=== PATIENT | female | born 1950 | race Caucasian/White ===

== ENCOUNTER 2019-03-06 09:05 | Outpatient (CLI) | payer MEDICARE, BC, SELFPAY ==
[2019-03-06 11:02] LABS: Abs Immature Grans 0.01 k/cumm (0.0-0.09); Absolute Basophil Count 0.03 k/cumm (0.0-0.2); Absolute Eosinophil Count 0.63 k/cumm (0.0-0.7); Absolute Lymphocyte Count 1.15 k/cumm (1.2-3.4); Absolute Monocyte Count 0.51 k/cumm (0.11-0.7); Absolute Neutrophil Count 4.26 k/cumm (1.2-6.7); Basophils % 0.5; Eosinophils % 9.6; HCT 29.4 % (36.0-46.0); HGB 8.3 g/dL (12.0-15.5); Immature Grans % 0.2; Lymphocytes % 17.5; Mean Corp. HGB Concentration 28.2 g/dL (32.0-36.0); Mean Corpuscular Hemoglobin 22.4 pg (27.0-33.0); Mean Corpuscular Volume 79.5 fL (80-95); Mean Platelet Volume 11.2 fL (8.0-11.0); Monocytes % 7.7; Neutrophils % 64.5; Platelet Count 372 x1000/uL (130-400); RBC Distribution Width 19.5 % (11.7-14.6); White Blood Cell Count 6.59 k/cumm (4.4-10.8)
[2019-03-06 11:20] LABS: Anisocytosis 2+; Diff Comment RBC Morph Reviewed; Hypochromasia 2+; Poikilocytes 2+; Polychromasia Present
[2019-03-06 12:24] LABS: Iron 110 ug/dL (50-175); Total Iron Binding Capacity 266 ug/dL (250-450); Transferrin Sat 41 % (15-50)
[2019-03-06 12:39] LABS: Ferritin 28 ng/mL (8-388); TSH (W/Ref FT4) 12.76 uIU/mL (0.358-3.74)
[2019-03-06 13:23] LABS: FREE T4 0.66 ng/dL (0.76-1.46)
== END 2019-03-06 09:25 ==
PROVIDERS: PCP Nurse Practitioner; Visit Provider Nurse Practitioner
DX: E03.9 Hypothyroidism, unspecified (principal); D64.9 Anemia, unspecified
CPT/HCPCS: 36415; 82728; 83540; 83550; 84439; 84443; 85025

== ENCOUNTER 2020-09-17 13:58 | Emergency (ER) | payer MEDICARE, BC, SELFPAY ==
--- NOTE | 2020-09-17 14:00 | RT.EKG_ITS ---
APPROVED REPORT Exam: Resting ECG Patient Location: E HR:75 bpm ECG Measurements Heart Rate 75 AXIS NH 164 P 55 QRSd 94 QRS -28 QT 408 T 44 QTc 456 Conclusion Sinus rhythm...normal P axis, V-rate 60- 99 Physician: Rate 75, sinus rhythm, no significant ST elevation or depression, no evidence of STEMI, no evidence of Brugada syndrome, epsilon wave, or delta wave
--- NOTE | 2020-09-17 14:00 | DI.CT_ITS ---
EXAM: CT BRAIN NECK CTA CLINICAL HISTORY: right neck mass, syncope COMPARISON: CT CHEST WITH CONTRAST from 12/28/2016 FINDINGS: CT angiography of the neck and chest was performed with intravenous infusion of 100 cc of Omnipaque 3 50. Images obtained through the upper lung vasquez show innumerable nodular radiodensities consistent with the patient's known metastatic papillary thyroid carcinoma. The number and size of nodules has increased since the prior CT scan of December 2016, largest nodule now measures about 2 cm in diamet er in the left upper lobe. There is mass of the right cervical region which measures up to 12 cm in diameter. This is probably contiguous with a right thyroid lobe mass. There are numerous lymph nodes throughout the cervical re gion which are enlarged consistent with widespread metastatic disease. Left supraclavicular lymph no sirena noted as well. The lymphadenopathy and the dominant right cervical mass have increased significa ntly in size when compared with prior examination of 2016, which was a chest CT demonstrating lower c ervical region only. No gross airway obstruction. The common, internal, and external carotid arteries are within normal l imits with no significant stenosis. The vertebral arteries are unremarkable in appearance bilaterall y. Aortic arch and visualized pulmonary arterial structures also appear intact. At the level of the cavernous sinus, there is a right-sided 14 x 11 x 12 millimeter in diameter aneur ysm which appears to arise from the internal carotid artery. No additional aneurysm in the region of the [id number]. The intracranial, vertebral and basilar arteries appear intact. The anterio r, middle, and posterior cerebral arteries appear intact bilaterally with no evidence of aneurysm, st enosis, or dissection. No gross enhancing intracranial lesion identified. The orbital and temporal bone structures appear i ntact. Paranasal sinuses and mastoid air cells are well aerated. No convincing bony erosive or destructive lesion seen. Question 2-3 millimeter foci of decreased bon e density noted in C2 and C3 vertebral bodies are nonspecific. IMPRESSION: 1. Patient has known metastatic papillary thyroid carcinoma and there is 12 cm right cervical mass se en laterally along with widespread bilateral cervical adenopathy and innumerable pulmonary metastases , all increased since prior examination of 2017. 2. 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 RADIATION DOSE DELIVERED: 1,066.57mGy.cm Total DLP
[2020-09-17 14:04] VITALS: BP 101/52; PULSE 84; RESP 23; TEMP 36.5; O2SAT 94
[2020-09-17 14:17] VITALS: RESP 13
[2020-09-17 14:38] LABS: Abs Immature Grans 0.04 10^3/uL (0.0-0.06); Absolute Basophil Count 0.03 10^3/uL (0.0-0.2); Absolute Eosinophil Count 0.58 10^3/uL (0.0-0.7); Absolute Lymphocyte Count 0.68 10^3/uL (1.2-3.4); Absolute Monocyte Count 0.53 10^3/uL (0.1-0.8); Absolute Neutrophil Count 7.54 10^3/uL (1.2-6.7); Basophils % 0.3; Eosinophils % 6.2; HCT 27.5 % (36.0-46.0); HGB 7.6 g/dL (11.2-15.7); Immature Grans % 0.4; Lymphocytes % 7.2; MCH 21.7 pg (27.0-33.0); MCHC 27.6 % (32.0-36.0); MCV 78.6 fL (80-95); MPV 10.7 fL (8.0-11.0); Monocytes % 5.6; Neutrophils % 80.3; Nucleated RBC 0 %; Platelet Count 350 10^3/uL (130-400); RDW 19.7 % (11.7-14.6); RDW-SD 53.2 fL
[2020-09-17 14:48] LABS: Anisocytosis 2+; Diff Comment RBC Morph Reviewed; Hypochromasia 3+; Microcytosis 2+; Polychromasia Present
[2020-09-17 14:49] LABS: Poikilocytes 2+
[2020-09-17 14:55] LABS: Troponin I < 0.05 ng/mL (<0.06)
[2020-09-17 15:01] LABS: ALT 11 U/L (14-59); AST 13 U/L (15-37); Albumin 2.6 g/dL (3.4-5.0); Alkaline Phosphatase 102 U/L (46-116); Anion Gap 10.9 mmol/L (3-11); BUN 20 mg/dL (7-18); Bilirubin, Total 0.3 mg/dL (0.2-1.0); CO2 24.1 mmol/L (21.0-32.0); CREATININE 0.88 mg/dL (0.55-1.02); Calcium 8.4 mg/dL (8.5-10.1); Chloride 107 mmol/L (98-107); Glucose 91 mg/dL (74-106); Potassium 3.9 mmol/L (3.5-5.1); Sodium 142 mmol/L (136-145); TSH (W/Ref FT4) 12.75 uIU/mL (0.36-3.74); Total Protein 6.2 g/dL (6.4-8.2)
--- NOTE | 2020-09-17 15:15 | ED.GENADUL_ITS ---
Discharge Plan Disposition Patient Disposition: HOME Condition: Serious Discharge Details Clinical Impression: Cancer of neck, Syncope, Aneurysm of carotid artery Primary Care Provider: Saige Musa ED Provider: Johny Montes Home Meds and New Rx's Prescriptions: Continued blue-green algae (Spirulina) 500 MG tablet 500 mg PO DAILY RF: 0 Echinacea and Goldenseal 1 EACH tablet 1 cap PO DAILY RF: 0 Thyroid Complex 2 cap PO DAILY RF: 0 ferrous sulfate 325 MG tablet 325 mg PO DAILY RF: 0 ascorbate calcium (vitamin C) 500 MG tablet 500 mg PO DAILY RF: 0 cholecalciferol (vitamin D3) 1,000 UNITS tablet 5 cap PO DAILY RF: 0 Discharge Instructions Instructions: Syncope (ED) Additional Instructions: As we discussed together right now you have some very concerning problems that require immediate management. The top 3 are your carotid artery aneurysm, your low blood levels, and the cancer from your neck that is spread to multiple other locations. As we discussed together it is your wish to go home rather than to stay or be transferred to [facility] at this time. I certainly respect that, and as we discussed together you are well aware of the risk of this. With that being said it is vitally important that you follow-up closely with your primary care doctor for immediate outpatient coordination of continued care of these 3 concerning etiologies. Please drink plenty of fluids, stay well-hydrated, avoid any vigorous activities that may increase your blood pressure. If you notice any worsening of your symptoms, or any new symptoms such as vomiting, diarrhea, fever, chills, shortness of breath, chest pain, numbness, weakness, or fainting , headache, neck pain, please return immediately to the emergency department for reevaluation. Please follow up with your primary care provider as soon as possible for reassessment and reevaluation. If at any point you would like to return to have us facilitate transfer to [facility] please return immediately and we will expedite this. As always, it was a pleasure participating in your medical care today. Referrals: Saige Musa [Primary Care Provider] - Medical Decision Making 70-year-old female with a past medical history of right-sided neck mass secondary to she describes as an enlarged lymph node, chronic iron d eficiency anemia for which she is being followed on an outpatient basis and has strong family history of, history of papillary carcinoma of the thyroid, previous episodes of syncope, presents today for syncope. Patient states that she was shopping at the grocery store standing in line for quite some time when she felt lightheaded, she tried to rest her head but unfortunately she passed out. Per bystanders she leaned forward on her cart, she did not strike her head or hurt any part of her body. She was unconscious for just a few seconds and came to. EMS arrived, vital demonstrated low blood pressure, she was given a 500 cc bolus of normal saline. Upon arrival to the ER her systolic had improved to 100. She feels much better at this time. She denies any pain in head, neck, chest, abdomen, or pelvis. She denies any new numbness, tingling, or weakness. No other complaints at this time. No other modifying factors. Patient states that of note she has been cutting down on her oral iron intake for the last week to week and a half but she plans to be going back to her normal level shortly. Physical exam demonstrates a notable grapefruit sized right neck mass, no stridor, no carotid bruit. Normal neurologic exam. No signs of significant trauma. Patient states that the symptoms were notably common for her, that she often faints when she has to stand up for extended periods of time. Suspect that there is symptoms are likely vasovagal in nature, she was given a 500 cc bolus by EMS. However with her large neck mass I am concerned that this may be impacting the carotid. We will get a CT scan to look for further evidence of invagination into the vasculature, we will rehydrate, will evaluate for acute cardiac abnormality otherwise, monitor closely and reassess. 5:17 PM Laboratory work-up and imaging has returned, multiple concerning abnormalities. Hemoglobin is 7.6 which is slightly lower than normal, no elevated white count, electrolytes normal, renal function stable. Troponin normal, proBNP normal suggestive of no fluid overload. Or cardiac strain. TSH is notably high at 12.75 which does not seem to be new. Free T4 is 0.7. Patient's blood pressure remained stable here, no hypertension or hypotension. Heart rate stable. Repeat neurologic exam continues to be normal. CT scan has returned and shows multiple concerning abnormalities. The large mass is certainly persistent on her neck, however previous CT scan in 2017 demonstrated a few lesions in the neck and apex of the lung, however this is notably increased over the past 3 years to include multiple more lesions and enhancement of size as well. In addition to that there is evidence of a right 14 x 11 x 12 mm aneurysm coming from the internal carotid artery. I did personally show the patient is images, and made it very clear that this is clear evidence of metastatic disease. The patient seemed to have a very unclear understanding of what this was from when it was previously described to her. She states that she has not been able to follow-up with a primary care provider recently. Additionally I described the concern of the carotid artery aneurysm, and the potential for rupture. We went over in depth the pathophysiology of this. I did discuss with the patient admission/observation to the hospital and/or transferred to [facility] for further management of this, and at this time through notable discussion, with a very clear discussion on the benefit of admission and the risks associated with discharge including the potential worst case scenario of or lifelong dis ability the patient has refused admission and would like to go home. Patient is of a appropriate age to make decisions. The patient is of sound mind, appears clinically sober, and has capacity to make decisions by my clinical exam. Additionally I offered to contact [facility] and begin the process of specialist discussion, however the patient would like to hold off on this and would like to have her care managed entirely through her primary care provider Saige Musa. The patient made it clear that she did not want to be pressured by the specialist at this time and would like to work through her primary care provider about this. Additionally I offered to contact the patient's family members to discuss this with them, and the patient requested that I hold off and allow her to discuss this with them first. The patient has made it very clear that she would like to go home at this time. She feels well, repeat orthostatic vital signs demonstrate no signs of hypotension. With no signs of hypertension I do not see indication for new blood pressure medications at this time. Respecting the patient's multiple requests for management on an outpatient basis she will be discharged home. I made it unequivocally clear that she can return at any time to have this transition to [facility] expedited. Additionally I spent a long time discussing risk going home, as well as symptoms that would be of concern for which she should immediately return for reassessment. We will place a referral with our telehealth case manager to have the patient followed up very closely with Dr. Musa. I have extensively reviewed the treatment plan and discharge instructions with the patient. I have addressed all patient concerns at this time. The patient was made aware of what symptoms to monitor for that would warrant a return to the emergency department. Discussed the plan with the patient, they demonstrate verbal understanding and agreement with our assessment and plan at this time. EKG 14: 10 Rate 75, sinus rhythm, no significant ST elevation or depression, no evidence of STEMI, no evidence of Brugada syndrome, epsilon wave, or delta wave. CT angiography of the neck and chest was performed with intravenous infusion of 100 cc of Omnipaque 350. Images obtained through the upper lung vasquez show innumerable nodular radiodensities consistent with the patient's known metastatic papillary thyroid carcinoma. The number and size of nodules has increased since the prior CT scan of December 2016, largest nodule now measures about 2 cm in diameter in the left upper lobe. There is mass of the right cervical region which measures up to 12 cm in diameter. This is probably contiguous with a right thyroid lobe mass. There are numerous lymph nodes throughout the cervical region which are enlarged consistent with widespread metastatic disease. Left supraclavicular lymph nodes noted as well. The lymphadenopathy and the dominant right cervical mass have increased significantly in size when compared with prior examination of 2016, which was a chest CT demonstrating lower cervical region only. No gross airway obstruction. The common, internal, and external carotid arteries are within normal limits with no significant stenosis. The vertebral arteries are unremarkable in appearance bilaterally. Aortic arch and visualized pulmonary arterial structures also appear intact. At the level of the cavernous sinus, there is a right-sided 14 x 11 x 12 millimeter in diameter aneurysm which appears to arise from the internal carotid artery. No additional aneurysm in the region of the [id number]. The the intracranial vertebral and No gross enhancing intracranial lesion identified. The orbital and temporal bone structures appear intact. Paranasal sinuses and mastoid air cells are well aerated. No convincing bony erosive or destructive lesion seen. Question 2-3 millimeter foci of decreased bone density noted in C2 and C3 vertebral bodies are nonspecific HPI General Date/Time Provider Initiated Documentation: 09/17/20 14:13 . HPI Narrative: 70-year-old female with a past medical history of right-sided neck mass secondary to she describes as an enlarged lymph node, chronic iron deficiency anemia for which she is being followed on an outpatient basis and has strong family history of, history of papillary carcinoma of the thyroid, previous episodes of syncope, presents today for syncope. Patient states that she was shopping at the grocery store standing in line for quite some time when she felt lightheaded, she tried to rest her head but unfortunately she passed out. Per bystanders she leaned forward on her cart, she did not strike her head or hurt any part of her body. She was unconscious for just a few seconds and came to. EMS arrived, vital demonstrated low blood pressure, she was given a 500 cc bolus of normal saline. Upon arrival to the ER her systolic had improved to 100. She feels much better at this time. She denies any pain in head, neck, chest, abdomen, or pelvis. She denies any new numbness, tingling, or weakness. No other complaints at this time. No other modifying factors. Patient states that of note she has been cutting down on her oral iron intake for the last week to week and a half but she plans to be going back to her normal level shortly. Related Data Home Medications Medication Instructions Recorded Confirmed Echinacea and Goldenseal 1 cap PO DAILY 08/29/15 09/17/20 blue-green algae (Spirulina) 500 mg PO DAILY 08/29/15 09/17/20 Thyroid Complex 2 cap PO DAILY 12/24/17 09/17/20 ascorbate calcium (vitamin C) 500 mg PO DAILY 12/24/17 09/17/20 cholecalciferol (vitamin D3) 5 cap PO DAILY 12/24/17 09/17/20 ferrous sulfate 325 mg PO DAILY 12/24/17 09/17/20 Allergies Allergy/AdvReac Type Severity Reaction Status Date / Time Penicillins Allergy Severe Anaphylaxsi Unverified 09/17/20 14:09 s epinephrine Allergy Intermediate faintness Unverified 09/17/20 14:09 and sweating General Stated Complaint: Dizzy/Sync KAELA: 2 Review of Systems All systems reviewed & are unremarkable except as noted in HPI and below PFSH Medical History Anemia Blood in stool Choroidal nevus, 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 3.ENT: Atraumatic external nose and ears. Moist MM. Neck: Symmetric, trachea midline, No thyromegaly. Patient has a notable chronic right sided neck mass size of a grapefruit. No stridor. Carotid pulse is palpable. There is no evidence of raccoon eyes, castro sign, CSF rhinorrhea, mastoid tenderness, cranial crepitus, hemotympanum, exophthalmos, or hyphema. Patient demonstrates intact dentition with no signs of tooth avulsion or fracture, no signs of jaw deformity, no evidence of a LeFort's fracture, with an intact palate, nose and orbital region. There is no evidence of a nasal septal hematoma. No proptosis. Jaw closes symmetrically. Airway is clear. 4.CVS: +S1/S2, No murmurs or gallops. Peripheral pulses 2+ and equal in all e xtremities. Brisk capillary refill in all extremities. 5.RESP: Unlabored respiratory effort. Clear to auscultation bilaterally. No wheezes rales or rhonchi 6.GI: Soft, Nontender/Nondistended, No hepatosplenomegaly. No guarding or rebound. 7.MSK: Normocephalic/Atraumatic, Extremities w/o deformity or ttp No cyanosis or clubbing, Normal movement of all extremities 8.Skin: Warm, Dry. No rashes or lesions. 9.Neuro: industrial electrician II-XII grossly intact. Sensation grossly intact, no focal neurologic deficits. All 6 cardinal planes of vision are fully intact. No evidence of rotatory or vertical nystagmus. The patient demonstrated a normal [id number], good dexterity. There was no evidence of dysdiadochokinesia. Patient was able to ambulate without difficulty. There was no wide-based gait. Romberg testing was normal. [id number]-[id number] testing was normal. Sensation was intact bilaterally as well as muscle strength bilaterally for all extremities. Patient was able to verbalize butter cup with no slurring, or miss pronunciation. 10.Psych: (AAO) x3. Appropriate mood and affect Course Vital Signs Vital signs: Vital Signs Temperature 36.5 C 09/17/20 14:04 Pulse 84 09/17/20 14:04 Respiratory Rate 23 09/17/20 14:04 Blood Pressure 101/52 L 09/17/20 14:04 Pulse Oximetry 94 09/17/20 14:04 Temperature 36.5 C 09/17/20 14:04 Temperature Source Skin 09/17/20 14:04 Pulse 84 09/17/20 14:04 Respiratory Rate 13 09/17/20 14:17 Respiratory Effort Non-Labored 09/17/20 14:17 Respiratory Depth Normal 09/17/20 14:17 Respiratory Pattern Normal 09/17/20 14:17 Blood Pressure 101/52 L 09/17/20 14:04 Blood Pressure Position Supine 09/17/20 14:04 Pulse Oximetry 94 09/17/20 14:04 Oxygen Delivery Method Room Air 09/17/20 14:04 Oxygen Flow Rate 0 09/17/20 14:04 Pain Level 0 09/17/20 14:04 Lab/Test Results Lab/Test Results: Laboratory Tests Range/Units 09/17/20 09/17/20 09/17/20 14:30 14:30 14:30 WBC (4.4-10.8) 10^3/uL 9.40 RBC (3.93-5.22) 10^6/uL 3.50 L Hgb (11.2-15.7) g/dL 7.6 L Hct (36.0-46.0) % 27.5 L MCV (80-95) fL 78.6 L MCH (27.0-33.0) pg 21.7 L MCHC (32.0-36.0) % 27.6 L RDW (11.7-14.6) % 19.7 H Plt Count (130-400) 10^3/uL 350 MPV (8.0-11.0) fL 10.7 Immature Gran % 0.4 Neutrophils % 80.3 Lymphocytes % 7.2 Monocytes % 5.6 Eosinophils % 6.2 Basophils % 0.3 Nucleated RBC % % 0 Absolute Neutrophils (1.2-6.7) 10^3/uL 7.54 H Absolute Lymphocytes (1.2-3.4) 10^3/uL 0.68 L Absolute Monocytes (0.1-0.8) 10^3/uL 0.53 Absolute Eosinophils (0.0-0.7) 10^3/uL 0.58 Absolute Basophils (0.0-0.2) 10^3/uL 0.03 RBC Morphology See below Polychromasia Present Hypochromasia 3+ Poikilocytosis 2+ Anisocytosis 2+ Microcytosis 2+ Sodium (136-145) mmol/L 142 Potassium (3.5-5.1) mmol/L 3.9 Chloride (98-107) mmol/L 107 Carbon Dioxide (21.0-32.0) mmol/L 24.1 Anion Gap (3-11) mmol/L 10.9 BUN (7-18) mg/dL 20 H Creatinine (0.55-1.02) mg/dL 0.88 Estimated GFR/1.73 m2 (mL/min/1.73m2) >= 60.00 Glucose (74-106) mg/dL 91 Calcium (8.5-10.1) mg/dL 8.4 L Total Bilirubin (0.2-1.0) mg/dL 0.3 AST (15-37) U/L 13 L ALT (14-59) U/L 11 L Alkaline Phosphatase (46-116) U/L 102 Troponin I (<0.06) ng/mL < 0.05 Total Protein (6.4-8.2) g/dL 6.2 L Albumin (3.4-5.0) g/dL 2.6 L TSH (0.36-3.74) uIU/mL 12.75 H
[2020-09-17 15:21] LABS: NT-proBNP 118 pg/mL (<300)
[2020-09-17] MEDS: Normal Saline Flush 10 ML SYR IVP (15:59)
[2020-09-17] MEDS: Omnipaque 350 MG/ML 100 ML BTL IJ (16:00)
[2020-09-17] MEDS: Normal Saline - Diluent 50 ML VIAL IV (16:00)
[2020-09-17 16:04] VITALS: BP 107/62; BP 108/60; BP 110/65; PULSE 85; PULSE 87; PULSE 91
[2020-09-17 17:03] VITALS: BP 111/60; PULSE 94; RESP 16; O2SAT 95
--- NOTE | 2020-09-17 17:06 | NUR.NOTE ---
Nursing Note: Referral faxed to PCP for follow up. Referral given to Care Management to follow up with patient to be sure she got appt and immediate follow up, Dana Ziegler
--- NOTE | 2020-09-20 09:16 | CMPROGNOTE_ITS ---
- If Service Date Differs Date of service: 09/20/20 Time of Service: 09:16 Care Management Progress Note At the request of Dr. Jyoti CM confirms Beba was seen by her PCP, Saige Musa np, on Saturday, September 19, 2020. KATH also left a message at Beba's home number ([phone]) offering assistance with scheduling appointment at [facility]. Will await a return phone call from Beba.
== END 2020-09-17 17:21 | disposition home or self-care (01) ==
PROVIDERS: Emergency Provider Student in an Organized Health Care Education/Training Program; PCP Nurse Practitioner
DX: I67.1 Cerebral aneurysm, nonruptured (principal); C76.0 Malignant neoplasm of head, face and neck; R55 Syncope and collapse; D50.9 Iron deficiency anemia, unspecified; C73 Malignant neoplasm of thyroid gland
CPT/HCPCS: 36415; 70496; 70498; 80053; 93005; 99285; 83880; 84439; 84443; 84484; 85025; 93010; J3490

== ENCOUNTER 2020-09-19 17:02 | Outpatient (REF) | payer MEDICARE, BC, SELFPAY ==
[2020-09-19 20:37] LABS: TSH (W/Ref FT4) 5.54 uIU/mL (0.36-3.74)
[2020-09-19 20:58] LABS: FREE T4 0.74 ng/dL (0.76-1.46)
[2020-09-20 10:45] LABS: Iron 11 ug/dL (50-170); Total Iron Binding Capacity 286 ug/dL (250-450); Transferrin Sat 4 % (15-50)
== END 2020-09-19 17:22 ==
LOC: NCHCN 17:02
PROVIDERS: PCP Nurse Practitioner; Visit Provider Nurse Practitioner
DX: E03.9 Hypothyroidism, unspecified (principal); D50.9 Iron deficiency anemia, unspecified
CPT/HCPCS: 83540; 83550; 84439; 84443

== ENCOUNTER 2021-04-07 01:57 | Outpatient (CLI) | payer MEDICARE, BC, SELFPAY ==
[2021-04-07 11:01] LABS: Iron 49 ug/dL (50-170)
[2021-04-07 11:11] LABS: TSH (W/Ref FT4) 9.45 uIU/mL (0.36-3.74)
[2021-04-07 11:28] LABS: FREE T4 0.71 ng/dL (0.76-1.46)
[2021-04-10 11:04] LABS: Misc Referral (MAYO) See Comments
== END 2021-04-07 01:58 | disposition home or self-care (01) ==
LOC: LBO 01:57
PROVIDERS: PCP Nurse Practitioner; Visit Provider Nurse Practitioner
DX: E03.9 Hypothyroidism, unspecified (principal); D50.9 Iron deficiency anemia, unspecified; R53.83 Other fatigue; R53.81 Other malaise; R51.9 Headache, unspecified
CPT/HCPCS: 36415; 86769; 83540; 84439; 84443

== ENCOUNTER 2022-03-11 10:41 | Emergency (ER) | payer MEDICARE, BC, SELFPAY ==
[2022-03-11] VITALS (57 sets, daily range): BP systolic 83–112; BP diastolic 44–71; PULSE 96–109; RESP 12–43; TEMP 36.3–37.4; O2SAT 88–100
--- NOTE | 2022-03-11 10:15 | RT.EKG_ITS ---
APPROVED REPORT Exam: Resting ECG Reason for Exam: hypoxia Patient Location: E HR:103 bpm ECG Measurements Heart Rate 103 AXIS SC 163 P 67 QRSd 90 QRS -33 QT 364 T [id number] QTc 478 Conclusion Sinus tachycardia...rate> 99 Left axis deviation...QRS axis (-30,-90) Nonspecific T abnrm, anterolateral leads...T <-0.10mV, I aVL V2-V6. Sinus. No STEMI.
--- NOTE | 2022-03-11 10:42 | W.ED.GENAD ---
Discharge Plan Disposition Patient Disposition: [facility] Condition: Serious Discharge Details Clinical Impression: Acute on chronic anemia, Pulmonary emboli, Metastasis from thyroid cancer, Pulmonary metastases Primary Care Provider: Saige Musa ED Provider: Landy Vicente Home Meds and New Rx's Prescriptions: No Action blue-green algae (Spirulina) 500 MG tablet 500 mg PO DAILY 0RF Echinacea and Goldenseal 1 EACH tablet 1 cap PO DAILY 0RF Thyroid Complex 2 cap PO DAILY 0RF ferrous sulfate 325 MG tablet 325 mg PO DAILY 0RF ascorbate calcium (vitamin C) 500 MG tablet 500 mg PO DAILY 0RF cholecalciferol (vitamin D3) 1,000 UNITS tablet 5 cap PO DAILY 0RF Discharge Data Discharge Date/Time-TO BE ENTERED AT DEPARTURE: 03/11/22 16:08 Medical Decision Making 1045 -- 71-year-old female with a history of metastatic papillary thyroid carcinoma and iron deficiency anemia who presents for dyspnea on exertion, generalized weakness and inability to get out of bed for the last week. Also reported that her neck mass has been oozing this morning. EMS reported oxygen saturation was 88% on room air and increased to 95% on 2 L. She was hypotensive at 96/55. Blood pressure 90/54, heart rate 104, oxygen saturation 88% on 2 L on arrival, increased to 4 L nasal cannula. Patient is cachectic, pale and ill-appearing. She is pale with a significantly large neck mass which is draining brown liquid on the distal aspect near her chest. She has 2+ pitting pedal edema. Suspect anemia. Consider PE. Will place an IV, screening labs, CT neck and chest with IV contrast to rule out abscess, PE, worsening mass or tumor burden. Labs and imaging reviewed. White blood cell count 14. Hemoglobin 3.4. Platelets 364. Lactate 1.7. Troponin negative. Urinalysis notes UTI. Fluvid negative. CT neck/chest notes: IMPRESSION: Interval increase in innumerable pulmonary metastases since CT of 2017. Acute pulmonary embolic disease, low to moderate clot burden, no evidence of right heart strain. No gross interval change in appearance of large right cervical mass and cervical adenopathy from 2019, the patient reportedly has a history of metastatic papillary thyroid carcinoma. 1330 -- Results discussed with patient. She would like to pursue any possible options. As she has anemia, cannot give anticoagulation for her PEs and will likely need IVC filter. Discussed with hospitalist who agrees with plan for transfer as patient would like to pursue treatment. Patient would not like to pursue comfort measures at this time. She states she was offered to have surgical removal of her thyroid cancer in the past but declined due to potential loss of her voice. 1440 -- Case discussed with [facility] center and patient accepted for transfer. Accepting physician critical care Dr. Langley. Medical Records Medical records reviewed: Yes I reviewed the patient's medical records. Imaging Data Radiologic Study: Radiologist's impression: CT CHEST PE CTA CLINICAL HISTORY:? sob, hypoxia, r/o PE TECHNIQUE:? COMPARISON:? CT CHEST WITH CONTRAST from 12/28/[address] BRAIN ? NECK CTA from 09/17/[address] NECK W from 03/11/2022 FINDINGS: CT examination of the chest was performed utilizing pulmonary angiogram protocol with intravenous infusion 100 cc of Omnipaque 350.? CT of the cervical region was performed following the CT a of the chest. The patient has known metastatic papillary thyroid carcinoma, comparison with prior chest CT of December 2016 again shows innumerable pulmonary metastatic lesions, most of which have increased in size in comparison with the prior examination, there are innumerable lesions present in both lungs.? There is predominant atelectasis at the lung bases which is new since the prior examination.? There are enlarged hilar lymph nodes which are new from the prior examination.? Central mediastinum is difficult to evaluate but there is probable mild central mediastinal adenopathy. There are multiple pulmonary emboli, emboli are present in all pulmonary lobes in segmental and subsegmental vessels.? No central large embolus identified.? No evidence of right heart strain.? No thoracic aortic aneurysm or dissection. A previously described large right cervical mass seen on prior CT of September 2020 is again noted and is roughly similar in size and shape to the prior examination.? The mass is predominantly cystic with multiple solid components.? No gross new cervical mass seen.? Mildly enlarged bilateral cervical nodes are again identified.? Tracheolaryngeal structures appear intact.? Visualized portions of the brain are grossly unremarkable.? Note is again made of apparent cavernous sinus ICA aneurysms, grossly unchanged from prior examination. No orbital abnormality seen. Images obtained through the upper abdomen show previously described bilateral renal cysts.? Hepatic parenchyma grossly unremarkable.? Early arterial phase splenic imaging grossly unremarkable although low-attenuation rounded lesion may be present in the spleen laterally, correlation with upper abdominal MRI may be considered if clinically indicated. IMPRESSION: Interval increase in innumerable pulmonary metastases since CT of 2017. Acute pulmonary embolic disease, low to moderate clot burden, no evidence of right heart strain. No gross interval change in appearance of large right cervical mass and cervical adenopathy from 2019, the patient reportedly has a history of metastatic papillary thyroid carcinoma. Lab Data Lab results reviewed: Yes I reviewed the patient's lab results. Labs: 03/11/22 11:36 Urine - Reflex from Ua Urine Culture - Pending Laboratory Tests Range/Units 03/11/22 03/11/22 03/11/22 10:50 10:50 10:50 WBC (4.4-10.8) 10^3/uL 14.36 H RBC (3.93-5.22) 10^6/uL 2.13 L Hgb (11.2-15.7) g/dL 3.4 L* Hct (36.0-46.0) % 13.3 L* MCV (80-95) fL 62 L MCH (27.0-33.0) pg 16.0 L MCHC (32.0-36.0) % 25.6 L RDW (11.7-14.6) % 22.4 H Plt Count (130-400) 10^3/uL 364 MPV (8.0-11.0) fL 10.1 Immature Gran % 0.3 Neutrophils % 90.7 Lymphocytes % 3.2 Monocytes % 5.4 Eosinophils % 0.3 Basophils % 0.1 Nucleated RBC % (0.0-0.3) % 0.0 Absolute Neutrophils (1.2-6.7) 10^3/uL 13.02 H Absolute Lymphocytes (1.2-3.4) 10^3/uL 0.46 L Absolute Monocytes (0.1-0.8) 10^3/uL 0.78 Absolute Eosinophils (0.0-0.7) 10^3/uL 0.04 Absolute Basophils (0.0-0.2) 10^3/uL 0.01 RBC Morphology See Below Hypochromasia 3+ Anisocytosis 2+ Microcytosis 2+ VBG Lactate (0.6-1.4) mmol/L 1.7 H Sodium (136-145) mmol/L 139 Potassium (3.5-5.1) mmol/L 3.9 Chloride (98-107) mmol/L 106 Carbon Dioxide (21.0-32.0) mmol/L 26.7 Anion Gap (3-11) mmol/L 6.3 BUN (7-18) mg/dL 26 H Creatinine (0.55-1.02) mg/dL 0.7 Estimated GFR/1.73 m2 (mL/min/1.73m2) >= 60.00 Glucose (74-106) mg/dL 96 Calcium (8.5-10.1) mg/dL 7.9 L Magnesium (1.8-2.4) mg/dL 2.1 Total Bilirubin (0.2-1.0) mg/dL 0.2 AST (15-37) U/L 8 L ALT (14-59) U/L 7 L Alkaline Phosphatase (46-116) U/L 113 Troponin I (<or=60) ng/L < 50 Total Protein (6.4-8.2) g/dL 5.1 L Albumin (3.4-5.0) g/dL 1.2 L Urine Color (Yellow) Urine Clarity (Clear) Urine pH (5-8) Ur Specific Twilight (1.005-1.025) Urine Protein (Negative) mg/dL Urine Ketones (Negative) mg/dL Urine Blood (Negative) Urine Nitrite (Negative) Urine Bilirubin (Negative) Urine Urobilinogen (Up TO 0.2) EU/dL Ur Leukocyte Esterase (Negative) Urine RBC (0-2) HPF Urine WBC (0-5) HPF Ur Epithelial Cells (Negative) HPF Urine Crystals (Negative) HPF Urine Bacteria (Negative) HPF Urine Casts (Negative) LPF Urine Mucus (Negative) Ur Culture Indicated? Urine Glucose (Negative) mg/dL COVID-19 Source SARS-CoV-2 (PCR) (Negative) Influenza Type A (PCR) (Negative) Influenza Type B (PCR) (Negative) RSV (PCR) (Negative) Patient ABO/Rh Antibody Screen Crossmatch Range/Units 03/11/22 03/11/22 03/11/22 10:50 11:16 11:36 WBC (4.4-10.8) 10^3/uL RBC (3.93-5.22) 10^6/uL Hgb (11.2-15.7) g/dL Hct (36.0-46.0) % MCV (80-95) fL MCH (27.0-33.0) pg MCHC (32.0-36.0) % RDW (11.7-14.6) % Plt Count (130-400) 10^3/uL MPV (8.0-11.0) fL Immature Gran % Neutrophils % Lymphocytes % Monocytes % Eosinophils % Basophils % Nucleated RBC % (0.0-0.3) % Absolute Neutrophils (1.2-6.7) 10^3/uL Absolute Lymphocytes (1.2-3.4) 10^3/uL Absolute Monocytes (0.1-0.8) 10^3/uL Absolute Eosinophils (0.0-0.7) 10^3/uL Absolute Basophils (0.0-0.2) 10^3/uL RBC Morphology Hypochromasia Anisocytosis Microcytosis VBG Lactate (0.6-1.4) mmol/L Sodium (136-145) mmol/L Potassium (3.5-5.1) mmol/L Chloride (98-107) mmol/L Carbon Dioxide (21.0-32.0) mmol/L Anion Gap (3-11) mmol/L BUN (7-18) mg/dL Creatinine (0.55-1.02) mg/dL Estimated GFR/1.73 m2 (mL/min/1.73m2) Glucose (74-106) mg/dL Calcium (8.5-10.1) mg/dL Magnesium (1.8-2.4) mg/dL Total Bilirubin (0.2-1.0) mg/dL AST (15-37) U/L ALT (14-59) U/L Alkaline Phosphatase (46-116) U/L Troponin I (<or=60) ng/L Total Protein (6.4-8.2) g/dL Albumin (3.4-5.0) g/dL Urine Color (Yellow) Yellow Urine Clarity (Clear) Sl Cloudy Urine pH (5-8) 6.0 Ur Specific Twilight (1.005-1.025) 1.015 Urine Protein (Negative) mg/dL 30 H Urine Ketones (Negative) mg/dL Negative Urine Blood (Negative) Trace-intact H Urine Nitrite (Negative) Positive H Urine Bilirubin (Negative) Negative Urine Urobilinogen (Up TO 0.2) EU/dL 0.2 Ur Leukocyte Esterase (Negative) Moderate H Urine RBC (0-2) HPF 0-2 Urine WBC (0-5) HPF 20-50 H Ur Epithelial Cells (Negative) HPF Few Urine Crystals (Negative) HPF Negative Urine Bacteria (Negative) HPF Moderate Urine Casts (Negative) LPF 0-2 Hyaline Urine Mucus (Negative) Negative Ur Culture Indicated? Yes Urine Glucose (Negative) mg/dL Negative COVID-19 Source Not Applicable SARS-CoV-2 (PCR) (Negative) Negative Influenza Type A (PCR) (Negative) Negative Influenza Type B (PCR) (Negative) Negative RSV (PCR) (Negative) Negative Patient ABO/Rh A Positive Antibody Screen NEGATIVE Crossmatch See Detail ECG Data Attestation: I personally reviewed and interpreted this ECG (s) as follows: Interpretation: Rate of 103, sinus, no stemi. HPI General Mode of arrival: ambulatory. Date/Time Provider Initiated Documentation: 03/11/22 10:51. Limitations to Documentation: no limitations. Information obtained by: patient. HPI Narrative: Pt is a 71yo F w/ a history of metastatic papillary thyroid carcinoma and iron deficiency anemia who presents with dyspnea on exertion, generalized weakness and inability to get out of bed for the last week. She also admits to swelling in her feet over the past 4 days. EMS states they were called to the scene after a neighbor checked on patient today and she was noted noted to have bruising from her goiter and her neck. Patient states she was unaware of this until a neighbor noticed it today. Patient states she gets Meals on Wheels but is able to feed herself. She states she has not been able to get out of bed for the last week. She has not taken any of her supplemental medications in the last 2 weeks. She states she is not on any prescription medication. She states she becomes significantly short of breath and weak with any exertion. She denies any known fever, abdominal pain, vomiting or diarrhea. She states she last ate this morning. She states she had a normal bowel movement without known rectal bleeding this morning. She states she thinks she lost approximately 60 pounds in the last year. Related Data Home Medications Medication Instructions Recorded Confirmed Echinacea purpurea extract 75 1 cap PO DAILY 08/29/15 03/11/22 mg-goldenseal extract 100 mg tablet (Echinacea and Goldenseal) blue-green algae (Spirulina) 500 500 mg PO DAILY 08/29/15 03/11/22 mg tablet Thyroid Complex 2 cap PO DAILY 12/24/17 03/11/22 ascorbate calcium (vitamin C) 500 500 mg PO DAILY 12/24/17 03/11/22 mg tablet cholecalciferol (vitamin D3) 25 5 cap PO DAILY 12/24/17 03/11/22 mcg (1,000 unit) tablet ferrous sulfate 325 mg (65 mg 325 mg PO DAILY 12/24/17 03/11/22 iron) tablet Allergies Allergy/AdvReac Type Severity Reaction Status Date / Time Penicillins Allergy Severe Anaphylaxsi Unverified 03/11/22 12:03 s epinephrine Allergy Intermediate faintness Unverified 03/11/22 12:03 and sweating General Stated Complaint: GenMedical KAELA: 2 Review of Systems All systems reviewed & are unremarkable except as noted in HPI and below Constitutional Constitutional: Denies chills, Denies excessive sweating, Denies fatigue, Denies fever(s), Reports weakness and Reports weight loss Eyes Eyes: Reports system reviewed and no additional complaints, except as documented and Denies blurry vision ENT Ears, Nose, Mouth, and Throat: Denies vertigo, Denies dizziness, Denies otalgia, Denies nasal congestion, Denies sore throat and Denies throat swelling Cardiovascular Cardiovascular: Denies chest pain, Denies syncope, Denies rapid heart rate, Reports leg edema, Denies dyspnea and Reports dyspnea on exertion Respiratory Respiratory: Denies chest congestion, Denies cough, Denies pain on inspiration, Denies dyspnea and Reports dyspnea on exertion Gastrointestinal Gastrointestinal: Denies abdominal pain, Denies diarrhea and Denies vomiting Genitourinary Genitourinary: Denies hematuria, Denies dysuria and Denies flank pain Musculoskeletal Musculoskeletal: Denies back pain and Denies joint swelling Integumentary/Breasts Skin/Breast: Denies lesions and Denies rash Neurologic Neurologic: Denies behavioral changes, Denies confusion, Denies vertigo, Denies dizziness, Denies syncope, Denies localized weakness and Reports weakness Psychiatric Psychiatric: Denies behavioral changes, Denies confusion and Denies depression Endocrine Endocrine: Denies excessive sweating and Denies fatigue Hematologic/Lymphatic Hematologic/Lymphatic: Denies easy bruising and Denies lymphadenopathy Allergic/Immunologic Allergic/Immunologic: Denies throat swelling PFSH All Active Problems (Updated 03/11/22 @ 14:49 by Landy Vicente DO) Strep pharyngitis (Acute) Acute on chronic anemia (Acute) Pulmonary emboli (Chronic) Metastasis from thyroid cancer (Acute) Pulmonary metastases (Acute) Medical History Anemia Blood in stool Choroidal nevus, 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, right Hx of syncope Hyperlipidemia Osteopenia Palpitations Papillary carcinoma of thyroid Surgical History FNA thyroid ORIF elbow uterine fibroid excision Family History Other Diabetes Heart disease Malaria Social History Smoking/Tobacco Use Status: Never Smoking risk assessment performed?: Yes Alcohol Intake: never Drug use: Never Substance use type: does not use Do you feel safe at home: Yes Do you feel safe in your relationship?: Yes Exam Const General: ill appearing acutely and chronically Nutritional Appearance: cachectic Orientation: alert, awake and oriented x3 HENMT Head: normal to inspection Ears: hearing grossly normal bilaterally, external ears normal and TM's normal bilaterally General nose exam: external nose normal Face and sinus: normal facial exam Mouth: oral mucosae normal Teeth and gingiva: dentition normal Throat: posterior oropharynx normal Eyes General: appearance normal, both eyes and all related structures Eyelids: eyelids normal Pupils: PERRL EOM: EOM intact bilaterally Neck Neck images: 1. Large goiter noted to right side of neck. 2. There are 3 soft boggy circular opening within the right lateral aspect of the distal goiter which are draining brownish material. There is no surrounding erythema. Chest Chest: normal inspection of the chest Resp Effort & Inspection: normal respiratory effort and able to speak in complete sentences Auscultation: clear to auscultation bilaterally Cardio Rate: regular rate Rhythm: regular rhythm GI Inspection: normal to inspection Palpation: soft, not firm, no guarding, no hepatosplenomegaly, no masses and nontender Auscultation: hypoactive bowel sounds Rectal Exam - female: heme positive stool (brown stool) Rectal exam heme positive - female: trace Back/Spine/Pelvis Back: no CVA tenderness Skin General skin exam: no rashes or lesions noted and pallor Neuro General: patient alert and patient awake Cognition: normal cognition Speech: speech normal Gait: normal gait Motor: muscle tone normal throughout Sensory Exam: no sensory deficits noted Extrem Other: 2+ pitting bilateral pedal edema. Psych Appearance: grossly normal Mental Status: mental status grossly normal Speech and Movement: speech and movement normal Affect: normal affect Thought Process: normal
[2022-03-11 11:01] LABS: Lactate 1.7 mmol/L (0.6-1.4)
[2022-03-11 11:19] LABS: Abs Immature Grans 0.05 10^3/uL (0.0-0.06); Absolute Basophil Count 0.01 10^3/uL (0.0-0.2); Absolute Eosinophil Count 0.04 10^3/uL (0.0-0.7); Absolute Lymphocyte Count 0.46 10^3/uL (1.2-3.4); Absolute Monocyte Count 0.78 10^3/uL (0.1-0.8); Absolute Neutrophil Count 13.02 10^3/uL (1.2-6.7); Basophils % 0.1; Eosinophils % 0.3; Immature Grans % 0.3; Lymphocytes % 3.2; MCHC 25.6 % (32.0-36.0); MCV 62 fL (80-95); MPV 10.1 fL (8.0-11.0); Monocytes % 5.4; Neutrophils % 90.7; Platelet Count 364 10^3/uL (130-400); RBC 2.13 10^6/uL (3.93-5.22); RDW 22.4 % (11.7-14.6); WBC 14.36 10^3/uL (4.4-10.8)
[2022-03-11 11:20] LABS: HCT 13.3 % (36.0-46.0); HGB 3.4 g/dL (11.2-15.7)
[2022-03-11 11:25] LABS: Anisocytosis 2+; Diff Comment RBC Morph Reviewed; Hypochromasia 3+; Microcytosis 2+
--- NOTE | 2022-03-11 11:25 | DI.CT_ITS ---
Exam(s) CT NECK W CT CHEST PE CTA EXAM: CT CHEST PE CTA CLINICAL HISTORY: sob, hypoxia, r/o PE TECHNIQUE: COMPARISON: CT CHEST WITH CONTRAST from 12/28/[address] BRAIN NECK CTA from 09/17/[address] NECK W from 03/11/2022 FINDINGS: CT examination of the chest was performed utilizing pulmonary angiogram protocol with intravenous inf usion [address] of the cervical region was performed following the CT a of the [facility]. The patient has known metastatic papillary thyroid carcinoma, comparison with prior chest CT of 2016 again shows innumerable pulmonary metastatic lesions, most of which have increased in size i n comparison with the prior examination, there are innumerable lesions present in both lungs. There is predominant atelectasis at the lung bases which is new since the prior examination. There are enl arged hilar lymph nodes which are new from the prior examination. Central mediastinum is difficult t o evaluate but there is probable mild central mediastinal adenopathy. There are multiple pulmonary emboli, emboli are present in all pulmonary lobes in segmental and subse gmental vessels. No central large embolus identified. No evidence of right heart strain. No thorac ic aortic aneurysm or dissection. A previously described large right cervical mass seen on prior CT of September 2020 is again noted and is roughly similar in size and shape to the prior examination. The mass is predominantly cystic wit h multiple solid components. No gross new cervical mass seen. Mildly enlarged bilateral cervical no sirena are again identified. Tracheolaryngeal structures appear intact. Visualized portions of the bra in are grossly unremarkable. Note is again made of apparent cavernous sinus ICA aneurysms, grossly u nchanged from prior examination. No orbital abnormality seen. Images obtained through the upper abdomen show previously described bilateral renal cysts. Hepatic p arenchyma grossly unremarkable. Early arterial phase splenic imaging grossly unremarkable although l ow-attenuation rounded lesion may be present in the spleen laterally, correlation with upper abdomina l MRI may be considered if clinically indicated. IMPRESSION: Interval increase in innumerable pulmonary metastases since CT of 2016. Acute pulmonary embolic disease, low to moderate clot burden, no evidence of right heart strain. No gross interval change in appearance of large right cervical mass and cervical adenopathy from 2019 , the patient reportedly has a history of metastatic papillary thyroid carcinoma. RADIATION DOSE DELIVERED: 293.47mGy.cm Total DLP !Error CTDIvol RADIATION OPTIMIZATION: All CT scans at this facility use at least one of these dose optimization te chniques: automated exposure control; mA and/or kV adjustment per patient size (includes targeted exa ms where dose is matched to clinical indication); or iterative reconstruction.
[2022-03-11 11:33] LABS: ALT 7 U/L (14-59); AST 8 U/L (15-37); Albumin 1.2 g/dL (3.4-5.0); Alkaline Phosphatase 113 U/L (46-116); Anion Gap 6.3 mmol/L (3-11); BUN 26 mg/dL (7-18); Bilirubin, Total 0.2 mg/dL (0.2-1.0); CO2 26.7 mmol/L (21.0-32.0); CREATININE 0.7 mg/dL (0.55-1.02); Calcium 7.9 mg/dL (8.5-10.1); Chloride 106 mmol/L (98-107); Glucose 96 mg/dL (74-106); Magnesium 2.1 mg/dL (1.8-2.4); Potassium 3.9 mmol/L (3.5-5.1); Sodium 139 mmol/L (136-145); Total Protein 5.1 g/dL (6.4-8.2); Troponin I < 50 ng/L (<or=60)
[2022-03-11 11:44] LABS: Bilirubin Negative (Negative); Blood Trace-intact (Negative); Clarity Sl Cloudy (Clear); Glucose Negative (Negative); Ketones Negative (Negative); Leukocyte Esterase Moderate (Negative); Nitrite Positive (Negative); Specific Gravity 1.015 (1.005-1.025); Urobilinogen 0.2 EU/dL (Up TO 0.2)
[2022-03-11 11:52] LABS: Bacteria Moderate HPF (Negative); C & S Indicated? Yes; Casts 0-2 Hyaline LPF (Negative); Crystals Negative HPF (Negative); Epithelial Cells Few HPF (Negative); Mucus Negative (Negative); RBC 0-2 HPF (0-2); WBC 20-50 HPF (0-5)
[2022-03-11 12:02] LABS: COVID-19 PCR Negative (Negative); Influenza A PCR Negative (Negative); Influenza B PCR Negative (Negative); RSV PCR Negative (Negative)
[2022-03-11] MEDS: Normal Saline Flush 10 ML SYR IVP ×4 (12:02→15:04)
[2022-03-11] MEDS: Normal Saline 1,000 ML 1000 ML IV (12:02)
[2022-03-11] MEDS: Omnipaque 350 MG/ML 50 ML BTL 56 ML IJ (12:16)
[2022-03-11] MEDS: levoFLOXacin 750 MG/150 ML BAG 100 MG IVPB (14:09)
--- NOTE | 2022-03-11 15:55 | NUR.NOTE ---
patient transferring via [place] [facility] [place]. patient has 2nd unit of blood transfusing enroute.
== END 2022-03-11 16:08 | disposition short-term general hospital (02) ==
PROVIDERS: Emergency Provider Physician Assistant; PCP Nurse Practitioner
DX: I26.99 Other pulmonary embolism without acute cor pulmonale (principal); D64.9 Anemia, unspecified; C73 Malignant neoplasm of thyroid gland; D50.8 Other iron deficiency anemias; R09.02 Hypoxemia; R06.02 Shortness of breath
CPT/HCPCS: 36415; 70491; 71275; 80053; 86850; 86900; 86901; 86920; 87077; 87637; 93005; 96361; 96365; 96366; 99285; 81003; 81015; 83605; 83735; 84484; 85025; 87086; 87186; 93010; J1956; P9016; Q9967